=== PATIENT | male | born 1960 | race Native Hawaiian/Other Pacific Islander ===

== ENCOUNTER 2020-11-19 14:02 | Outpatient (CLI) | payer BC ==
[~2020-11-19 14:02] MED LIST: FLOVENT HFA44 MCG IN; FLUTICASONE50 MCG; MELOXICAM15 MG PO; OMEPRAZOLE40 MG PO; PROAIR HFA IN; SINGULAIR10 MG PO
== END 2020-11-19 22:14 | disposition home or self-care (01) ==
LOC: LAB 14:02
PROVIDERS: ATTEND Nurse Practitioner Family
DX: R68.82 Decreased libido (principal); R39.198 Other difficulties with micturition
CPT/HCPCS: 84153